=== PATIENT | male | born 1970 | race Caucasian/White ===

== ENCOUNTER 2019-12-14 23:51 | Emergency (ER) | payer OTHER ==
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
[2019-12-15] MEDS ORDERED: Lactated Ringers 1,000 ML IV ONE (01:09)
--- NOTE | 2020-01-21 08:55 | CT ---
PROCEDURE INFORMATION: Exam: CT Head Without Contrast Exam date and time: 12/15/2019 1:29 AM Age: 49 years old Clinical indication: Altered mental status/memory loss and syncope and collapse; Confusion or disorientation TECHNIQUE: Imaging protocol: Computed tomography of the head without contrast. Radiation optimization: All CT scans at this facility use at least one of these dose optimization techniques: automated exposure control; mA and/or kV adjustment per patient size (includes targeted exams where dose is matched to clinical indication); or iterative reconstruction. COMPARISON: No relevant prior studies available. FINDINGS: Brain: No acute subarachnoid or parenchymal hemorrhage. No neoplastic mass lesion, midline shift or mass effect. No acute subdural or epidural hematoma. No definite acute infarct. Cerebral ventricles: No acute intraventricular hemorrhage. No hydrocephalus. Bones/joints: No acute calvarial fracture. Paranasal sinuses: Chronic bilateral sinusitis, greatest in ethmoid sinuses. Mastoid air cells: Visualized mastoid air cells are well aerated. Soft tissues: Unremarkable. IMPRESSION: 1. No acute intracranial abnormality. 2. Remainder of findings as above. Thank you for allowing us to participate in the care of your patient. Dictated and Authenticated by: Wilmer Whittington MD 01/20/2020 11:39 PM Central Time ([place] & [place]) [facility]ITALFrancie
== END 2019-12-15 04:00 | disposition home or self-care (01) ==
LOC: JD.ED 23:51
DX: R55 Syncope and collapse (principal); F17.210 Nicotine dependence, cigarettes, uncomplicated; Z88.0 Allergy status to penicillin
CPT/HCPCS: 36415; 70450; 80053; 80307; 83735; 84443; 85025; 93005; 96360; 99284; J7120; 93010; 99283

== ENCOUNTER 2022-02-25 22:27 | Emergency (ER) | payer BC, OTHER ==
[2022-02-25] MEDS ORDERED: Albuterol/Ipratropium 3.0-0.5 MG/3 ML Neb Soln NEB PRN (23:01)
[2022-02-25] MEDS ORDERED: Sodium Chloride 0.9% 10 ML Syringe FLUSH PRN (23:04)
== END 2022-02-25 23:50 | disposition home or self-care (01) ==
LOC: JD.ED 22:27
DX: S09.90XA Unspecified injury of head, initial encounter (principal); M54.2 Cervicalgia; F10.929 Alcohol use, unspecified with intoxication, unspecified; Z88.0 Allergy status to penicillin; Z72.0 Tobacco use; W18.30XA Fall on same level, unspecified, initial encounter; Y92.89 Other specified places as the place of occurrence of the external cause; Y99.0 Civilian activity done for income or pay
CPT/HCPCS: 70450; 71045; 72125; 93005; 99284; J3490